=== PATIENT | male | born 2000 | race Caucasian/White ===

== ENCOUNTER 2024-09-02 21:42 | Emergency (ER) | payer SELFPAY ==
--- NOTE | 2024-09-02 21:48 | ERPHSYRPT ---
- History of Present Illness Time Seen by Provider: 09/02/24 21:48 Source: patient Exam Limitations: no limitations Physician History: This is a 24-year-old white male patient who has known multiple left upper molar fractures and dental caries. Patient is from out of town. Yesterday, the pain worsened and he has associated low-grade fever. Patient has no stridor. He is swallowing fine. Patient has no known drug allergies and he takes no medications chronically. Timing/Duration: gradual onset, yesterday (Symptoms worsened yesterday) Severity: mild ENT Location: dental (Left upper molars) Prearrival Treatment: over the counter meds Modifying Factors: Improves With: activity Associated Symptoms: fever (Grade), tooth pain (Dr. Mcleods) Allergies/Adverse Reactions: No Known Drug Allergies Allergy (Unverified 09/02/24 22:07) Travel Risk - International Travel Have you traveled outside of the country in past 3 weeks: No - Emerging Infectious Disease Are you exhibiting symptoms associated with any current EIDs: No - Review of Systems Constitutional: Fever (Low-grade) Eyes: No Symptoms Ears, Nose, & Throat: Other (Multiple dental fractures and generalized dental caries) Respiratory: No Symptoms Cardiac: No Symptoms Abdominal/Gastrointestinal: No Symptoms Genitourinary Symptoms: No Symptoms Musculoskeletal: No Symptoms Skin: No Symptoms Neurological: No Symptoms Psychological: No Symptoms Endocrine: No Symptoms Hematologic/Lymphatic: No Symptoms Immunological/Allergic: No Symptoms All Other Systems: Reviewed and Negative - Past Medical History Pertinent Past Medical History: No - Nursing Vital Signs Nursing Vital Signs: Initial Vital Signs Temperature 100.4 F 09/02/24 22:08 Pulse Rate 87 09/02/24 22:08 Respiratory Rate 20 09/02/24 22:08 Blood Pressure 162/97 09/02/24 22:08 O2 Sat by Pulse Oximetry 98 09/02/24 22:08 Pain Scale Pain Intensity 8 - Physical Exam General Appearance: no apparent distress, alert, anxiety Eye Exam: bilateral eye: normal inspection, PERRL, EOMI Ear Exam: bilateral ear: auricle normal Nasal Exam: normal inspection Throat Exam: pharynx normal, dental tenderness (Generalized dental caries and generalized dental fractures. 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, normal mood/affect, nml cerebellar function, nml station & gait, sensation nml Skin Exam: normal color, warm, dry SpO2 Interpretation: normal O2 Delivery: Room Air - Course Nursing assessment & vital signs reviewed: Yes Ordered Tests: Medication Summary Discontinued Medications Generic Name Dose Route Start Last Admin Trade Name Sincere PRN Reason Stop Dose Admin Hydrocodone Bitart/Acetaminophen 2 tab 09/02/24 22:24 Hydrocodone/Apap 5/325 1 Tab Tablet PO 09/02/24 22:25 SENT HOME W/ PATIENT ONE Hydrocodone Bitart/Acetaminophen 1 tab 09/02/24 22:25 Hydrocodone/Apap 5/325 1 Tab Tablet PO 09/02/24 22:26 STAT ONE Ceftriaxone Sodium 1,000 mg 09/02/24 22:23 Ceftriaxone Sodium 1000 Mg Inj Vial IM 09/02/24 22:24 STAT ONE Ibuprofen 600 mg 09/02/24 22:25 Ibuprofen 600 Mg Tablet PO 09/02/24 22:26 STAT ONE - Progress Progress: improved, pain not gone completely Progress Note: 09/02/24 22:40 My medical decision making and the assignment of low complexity to this patient's medical issue today is based on review of the patient's past medical history, review of the patient's medication list, reviewed patient drug allergy list, history present illness and physical findings on examination. The workup in this patient does not require any laboratory or radiographic studies. Differential diagnosis includes but is not limited to dental caries, dental fracture Counseled pt/family regarding: diagnosis, need for follow-up Medical Desision Making - Independent Historian Additional History obtained from: Relative/friend - Diagnostic Testing Diagnostic test were ordered, analyzed, and reviewed by me: No - Risk of complications The pt has a mod risk of morbidity or mortality based on: Need for prescription drug management - Departure Departure Disposition: Home Clinical Impression: Pain due to dental caries, Tooth fractures Condition: Stable Critical Care Time: No Referrals: DOCTOR,NO FAMILY [Primary Care Provider] - Follow up/PCP as directed Additional Instructions: Drink plenty of fluids. Add ibuprofen 600 mg orally 3 times a day with food to pain control regimen. Take your antibiotics as prescribed. Call a dentist for definitive care as an outpatient. Prescriptions: Amoxicillin 500 mg Cap [Amoxil 500 mg] 500 mg PO TID #30 cap
[2024-09-02 22:17] VITALS: RESP 20; TEMP 100.4
[2024-09-02] MEDS ORDERED: Rocephin 1000 MG INJ ONE (22:39)
[2024-09-02] MEDS ORDERED: NORCO 5/325 MG ONE (22:39)
[2024-09-02] MEDS ORDERED: MOTRIN 600 MG ONE (22:39)
[2024-09-02] MEDS: Rocephin 1000 MG INJ IM ONE (22:40)
[2024-09-02] MEDS: NORCO 5/325 MG PO ONE ×2 (22:41)
[2024-09-02] MEDS: MOTRIN 600 MG PO ONE (22:41)
[2024-09-02 22:53] VITALS: BP 135/106; PULSE 91; O2SAT 97
== END 2024-09-02 23:02 | disposition home or self-care (01) ==
LOC: ED 21:42
DX: K02.9 Dental caries, unspecified (principal); K08.89 Other specified disorders of teeth and supporting structures; Z79.899 Other long term (current) drug therapy
CPT/HCPCS: 96372; 99283; 99284; J0696; A9270-GY

== ENCOUNTER 2024-09-09 15:04 | Emergency (ER) | payer SELFPAY ==
[2024-09-09 15:16] VITALS: BP 169/82; PULSE 78; RESP 18; O2SAT 99
[2024-09-09] MEDS ORDERED: TORAdol 30 mg Injection ONE (15:19)
[2024-09-09] MEDS ORDERED: NORCO 5/325 MG ONE (15:20)
[2024-09-09] MEDS ORDERED: Augmentin 875-125 Tablet ONE (15:20)
--- NOTE | 2024-09-09 15:21 | ERPHSYRPT ---
- History of Present Illness Time Seen by Provider: 09/09/24 15:18 Source: patient Exam Limitations: no limitations Physician History: 24-year-old male presents to our ED for evaluation of dental pain. Patient was in our ED last week from the same. Patient is visiting from [place] and he does not have a primary care doctor locally. He has not seen a dentist. Patient's pain is localized to tooth #16. The tooth is carious with inflamed tender swollen gingiva adjacent to the involved tooth. There is tenderness to percussion. Oral exam otherwise nonremarkable. No trauma no fever no nausea no vomiting no diarrhea no rash. Patient has no systemic manifestations to his illness. He otherwise feels well. Family at bedside. They voiced no other complaints or concerns at this time. Portions of this note were created with voice recognition technology. There may be grammatical, spelling, punctuation or sound alike errors Timing/Duration: today Severity: moderate Modifying Factors: Improves With: other (Palpation and mastication) Associated Symptoms: denies symptoms Allergies/Adverse Reactions: No Known Drug Allergies Allergy (Verified 09/09/24 15:13) Hx Tetanus, Diphtheria Vaccination/Date Given: Yes Hx Influenza Vaccination/Date Given: Yes Hx Pneumococcal Vaccination/Date Given: No Travel Risk - Emerging Infectious Disease Are you exhibiting symptoms associated with any current EIDs: No Symptoms: Fever - Review of Systems Constitutional: No Symptoms, No Fever, No Chills Eyes: No Symptoms Ears, Nose, & Throat: No Symptoms Respiratory: No Symptoms, No Cough, No Dyspnea Cardiac: No Symptoms, No Chest Pain, No Edema, No Syncope Abdominal/Gastrointestinal: No Symptoms, No Abdominal Pain, No Nausea, No Vomiting, No Diarrhea Genitourinary Symptoms: No Symptoms, No Dysuria Musculoskeletal: No Symptoms, No Back Pain, No Neck Pain Skin: No Symptoms, No Rash Neurological: No Symptoms, No Dizziness, No Focal Weakness, No Sensory Changes Psychological: No Symptoms Endocrine: No Symptoms Hematologic/Lymphatic: No Symptoms Immunological/Allergic: No Symptoms All Other Systems: Reviewed and Negative - Past Medical History Pertinent Past Medical History: No - Past Surgical History Past Surgical History: No - Social History Smoking Status: Current some day smoker Exposure to second hand smoke: Yes Drug Use: none - Social Determinants of Health Will the patient participate in the screening: Yes Do you worry about a steady place to live?: No In the past 12 months,have you had to go without utilities?: No Transportation Issues: No Has anyone in your support network made you feel unsafe?: No Have you or anyone in your house had to go without enough: No - Nursing Vital Signs Nursing Vital Signs: Initial Vital Signs Pulse Rate 78 09/09/24 15:15 Respiratory Rate 18 09/09/24 15:15 Blood Pressure 169/82 09/09/24 15:15 O2 Sat by Pulse Oximetry 99 09/09/24 15:15 - Physical Exam General Appearance: no apparent distress, alert Eye Exam: PERRL/EOMI, eyes nml inspection Ears, Nose, Throat Exam: normal ENT inspection, pharynx normal, moist mucous membranes Neck Exam: normal inspection, non-tender, supple, full range of motion Respiratory Exam: normal breath sounds, lungs clear, airway intact, No respiratory distress Cardiovascular Exam: regular rate/rhythm, normal heart sounds, normal peripheral pulses Gastrointestinal/Abdomen Exam: soft, normal bowel sounds, No tenderness, No mass Back Exam: normal inspection, normal range of motion, No CVA tenderness, No vertebral tenderness Extremity Exam: normal inspection, normal range of motion, pelvis stable Neurologic Exam: alert, oriented x 3, cooperative, normal mood/affect, nml cerebellar function, nml station & gait, sensation nml, No motor deficits Skin Exam: normal color, warm, dry, No rash Lymphatic Exam: No adenopathy SpO2 Interpretation: normal SpO2: 99 O2 Delivery: Room Air - Course Nursing assessment & vital signs reviewed: Yes Ordered Tests: Medication Summary Discontinued Medications Generic Name Dose Route Start Last Admin Trade Name Sincere PRN Reason Stop Dose Admin Hydrocodone Bitart/Acetaminophen 1 tab 09/09/24 15:14 Hydrocodone/Apap 5/325 1 Tab Tablet PO 09/09/24 15:15 STAT ONE Hydrocodone Bitart/Acetaminophen Confirm 09/09/24 15:20 Hydrocodone/Apap 5/325 1 Tab Tablet Administered 09/09/24 15:21 Dose 1 tab .ROUTE .STK-MED ONE Amoxicillin/Clavulanate Potassium 875 mg 09/09/24 15:13 Amox Tr/Potassium Clavulanate 875 Mg Tablet PO 09/09/24 15:14 STAT ONE Amoxicillin/Clavulanate Potassium Confirm 09/09/24 15:20 Amox Tr/Potassium Clavulanate 875 Mg Tablet Administered 09/09/24 15:21 Dose 875 mg .ROUTE .STK-MED ONE Ketorolac Tromethamine 60 mg 09/09/24 15:12 Ketorolac Tromethamine 30 Mg/Ml Inj IM 09/09/24 15:13 STAT ONE Ketorolac Tromethamine Confirm 09/09/24 15:19 Ketorolac Tromethamine 30 Mg/Ml Inj Administered 09/09/24 15:20 Dose 60 mg .ROUTE .STK-MED ONE - Progress Progress: improved Progress Note: 24-year-old male presents to our ED for evaluation of dental pain. The involved tooth is tooth #16. The tooth is carious with inflamed gingiva likely a dental abscess. Patient was in our ED for the same last week. Patient was treated with penicillin. Patient has yet to follow-up with a dentist. No systemic manifestations of patient's presentation. Patient received IM Toradol 60 mg p.o. Holbrook and Augmentin. No indication for further workup. Will discharge home. Patient provided with a list of urgent dental offices for follow-up. Plan of care discussed with patient. He agrees to follow-up as discussed. He voices no other complaints or concerns at this time. Portions of this note were created with voice recognition technology. There may be grammatical, spelling, punctuation or sound alike errors Complexity of problem addressed is moderate acute complicated. No critical care time. Complex of data reviewed and analyzed is none. Diagnosis made based on history and physical exam. Risk of complication and or risk of morbidity/mortality of patient management is high. Patient received Holbrook in our ED. He also received a prescription for the same. Patient received a prescription for Augmentin and Toradol as well. Vital stable. Time spent to discharge patient approximately 10 minutes. Plan of care established for shared decision making. No social determinants of health present to impede follow-up. Portions of this note were created with voice recognition technology. There may be grammatical, spelling, punctuation or sound alike errors 09/09/24 15:26 Counseled pt/family regarding: diagnosis, need for follow-up - Departure Departure Disposition: Home Clinical Impression: Pain, dental, Dental abscess, Carious teeth Condition: Stable Critical Care Time: No Referrals: DOCTOR,NO FAMILY [Primary Care Provider] - Follow up/PCP as directed LVADIMIR MERAZ MD [ACTIVE STAFF] - Follow up/PCP as directed Additional Instructions: Discharge/Care Plan DAVID SHELBY was seen on 09/09/24 in the Emergency Room. The patient was counseled regarding Diagnosis,Lab results, Imaging studies, need for follow up and when to return to the Emergency Room. Prescriptions given: Discharge Note I have spoken with the patient and/or caregivers. I have explained the patient's condition, diagnosis and treatment plan based on the information available to me at this time. I have answered the patient's and/or caregiver's questions and addressed any concerns. The patient and/or caregivers have as good understanding of the patient's diagnosis, condition and treatment plan as can be expected at this point. The vital signs have been stable. The patient's condition is stable and appropriate for discharge from the emergency department. The patient will pursue further outpatient evaluation with the primary care physician or other designated or consulting physician as outlined in the discharge instructions. The patient and/or caregivers are agreeable to this plan of care and follow-up instructions have been explained in detail. The patient and/or caregivers have received these instruction. The patient/and or caregivers are aware that any significant change in condition or worsening of symptoms should prompt an immediate return to this or the closest emergency department or call 911. Prescriptions: Hydrocodone/APAP 5/325 [Holbrook 5/325 mg] 1 each PO Q6H PRN PRN #10 tablet MDD 4 PRN Reason: Pain Amox Tr/Potass Clav. 875 mg [Augmentin 875-125 Tablet] 875 mg PO BID 7 Days #14 tablet Ketorolac Trometh 10 mg Tab [TORAdol 10 MG TABLET] 10 mg PO TID 5 Days #15 tablet
[2024-09-09] MEDS: Augmentin 875-125 Tablet PO ONE (15:22)
[2024-09-09] MEDS: TORAdol 30 mg Injection IM ONE (15:23)
[2024-09-09] MEDS: NORCO 5/325 MG PO ONE (15:23)
== END 2024-09-09 15:48 | disposition home or self-care (01) ==
LOC: ED 15:04
DX: K04.7 Periapical abscess without sinus (principal); K02.9 Dental caries, unspecified; K08.89 Other specified disorders of teeth and supporting structures; Z79.891 Long term (current) use of opiate analgesic; Z79.899 Other long term (current) drug therapy; Z72.0 Tobacco use
CPT/HCPCS: 96372; 99283; J1885; A9270-GY

== ENCOUNTER 2024-10-03 21:54 | Emergency (ER) | payer SELFPAY ==
[2024-10-03 22:36] VITALS: BP 137/82; RESP 18; TEMP 97.5
[2024-10-03 23:02] VITALS: PULSE 107; O2SAT 97
--- NOTE | 2024-10-03 23:28 | ERPHSYRPT ---
- History of Present Illness Time Seen by Provider: 10/03/24 22:07 Source: patient Exam Limitations: no limitations Patient Subjective Stated Complaint: "I have a bad tooth ache and I think an abscess". Triage Nursing Assessment: Pt presents to ER with complaints of toothache x 3 days. Is concerned that he possibly has an abscess. Pt is alert and oriented x 3. Skin is pink, warm, and dry. Respirations are unlabored. Pain is 9/10 scale. Dental decay noted. Facial tenderness upon exam. Pt has attempted to use OTC meds without relief. Physician History: 24-year-old presented in the ER with complains of left upper jaw toothache in the molar area where it broke few weeks ago and now having increased swelling and pain. Patient is taking ofse-inl-ybhiyme medication with no significant relief. Denies any fever or chills. Patient has multiple broken teeth with periodontal disease and dental caries. Has minimal swelling of gingiva of left upper molar area with no fluctuation. Does have positive dental and gingival tenderness. Do not appreciate any formed abscess. He is given Toradol here along with dental balls and started on Augmentin, recommended outpatient dental follow-up. Discussed signs symptoms of worsening needing return to ER which she seems understanding. Stable for discharge. Allergies/Adverse Reactions: No Known Drug Allergies Allergy (Verified 10/03/24 22:28) Hx Tetanus, Diphtheria Vaccination/Date Given: Yes Hx Influenza Vaccination/Date Given: Yes Hx Pneumococcal Vaccination/Date Given: No Immunizations Up to Date: No Travel Risk - International Travel Have you traveled outside of the country in past 3 weeks: No - Emerging Infectious Disease Are you exhibiting symptoms associated with any current EIDs: No Symptoms: Fever - Review of Systems Constitutional: No Symptoms Ears, Nose, & Throat: Mouth Pain, Loose Teeth Respiratory: No Symptoms Cardiac: No Symptoms Musculoskeletal: No Symptoms Neurological: No Symptoms Endocrine: No Symptoms - Past Medical History Pertinent Past Medical History: No - Past Surgical History Past Surgical History: No - Social History Smoking Status: Current every day smoker Exposure to second hand smoke: No Drug Use: none - Social Determinants of Health Will the patient participate in the screening: Yes Do you worry about a steady place to live?: No Do you have any problems with any of the following?: No known problems In the past 12 months,have you had to go without utilities?: No Transportation Issues: No Has anyone in your support network made you feel unsafe?: No Have you or anyone in your house had to go without enough: No - Nursing Vital Signs Nursing Vital Signs: Initial Vital Signs Temperature 97.5 F 10/03/24 22:28 Pulse Rate 88 10/03/24 22:28 Respiratory Rate 18 10/03/24 22:28 Blood Pressure 137/82 10/03/24 22:28 O2 Sat by Pulse Oximetry 98 10/03/24 22:28 Pain Scale Pain Intensity 9 - Physical Exam General Appearance: no apparent distress Eye Exam: bilateral eye: normal inspection Ear Exam: bilateral ear: auricle normal, canal normal, TM normal Nasal Exam: normal inspection, active bleeding Throat Exam: normal, pharynx normal, dental tenderness Neck Exam: normal inspection, non-tender, supple, full range of motion, trachea midline Cardiovascular/Respiratory Exam: normal breath sounds, regular rate/rhythm Neurologic Exam: alert, oriented x 3, cooperative, 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 Skin Exam: normal color SpO2 Interpretation: normal SpO2: 97 O2 Delivery: Room Air Ordered Tests: Medication Summary Discontinued Medications Generic Name Dose Route Start Last Admin Trade Name Freq PRN Reason Stop Dose Admin Al Hydrox/Mg Hydrox/Simethicone 30 ml 10/03/24 23:14 Mag Hydrox/Al Hydrox/Simeth 30 Ml Udcup MM 10/03/24 23:15 STAT ONE Amoxicillin/Clavulanate Potassium 875 mg 10/03/24 23:14 Amox Tr/Potassium Clavulanate 875 Mg Tablet PO 10/03/24 23:15 STAT ONE Benzocaine/Butamben/Tetracaine HCl 5 spray 10/03/24 23:14 Tetracaine/Benzocaine/Butamben 1 [place] MM 10/03/24 23:15 ONCE ONE Ketorolac Tromethamine 30 mg 10/03/24 23:14 Ketorolac Tromethamine 30 Mg/Ml Inj IM 10/03/24 23:15 STAT ONE Lidocaine HCl 30 ml 10/03/24 23:14 Lidocaine Hcl 2% Viscous 15 Ml Udcup MM 10/03/24 23:15 STAT ONE - Progress Progress: improved, pain not gone completely Progress Note: 10/03/24 23:26 24-year-old presented in the ER with complains of left upper jaw toothache in the molar area where it broke few weeks ago and now having increased swelling and pain. Patient is taking [id number] medication with no significant relief. Denies any fever or chills. Patient has multiple broken teeth with periodontal disease and dental caries. Has minimal swelling of gingiva of left upper molar area with no fluctuation. Does have positive dental and gingival tenderness. Do not appreciate any formed abscess. He is given Toradol here along with dental balls and started on Augmentin, recommended outpatient dental follow-up. Discussed signs symptoms of worsening needing return to ER which she seems understanding. Stable for discharge. Counseled pt/family regarding: diagnosis, need for follow-up Medical Desision Making - Diagnostic Testing Diagnostic test were ordered, analyzed, and reviewed by me: No - Risk of complications The pt has a mod risk of morbidity or mortality based on: Need for prescription drug management - Departure Departure Disposition: Home Clinical Impression: Dental infection, Dental infection Condition: Stable Critical Care Time: No Referrals: DOCTOR,NO FAMILY [Primary Care Provider] - Follow up/PCP as directed Instructions: Tooth Abscess (DC) Additional Instructions: Follow-up with your dentist for reevaluation. Take Tylenol/ibuprofen as needed. Return to ER for increasing pain swelling or if develop fever chills etc. Prescriptions: Ibuprofen 600 mg PO Q6HPRN PRN 10 Days #20 tablet PRN Reason: Pain Amox Tr/Potass Clav. 875 mg [Augmentin 875-125 Tablet] 875 mg PO BID #14 tablet
[2024-10-03] MEDS ORDERED: Augmentin 875-125 Tablet ONE (23:54)
[2024-10-03] MEDS ORDERED: TORAdol 30 mg Injection ONE (23:54)
[2024-10-03] MEDS ORDERED: CETACAINE SPRAY ONE (23:55)
[2024-10-03] MEDS ORDERED: XYLOCAINE VISCOUS 2% 15 ML CUP ONE (23:56)
[2024-10-03] MEDS ORDERED: MAALOX ES 30 ML UNIT DOSE ONE (23:56)
[2024-10-04] MEDS: Augmentin 875-125 Tablet PO ONE (00:01)
[2024-10-04] MEDS: MAALOX ES 30 ML UNIT DOSE MM ONE (00:10)
[2024-10-04] MEDS: CETACAINE SPRAY MM ONE (00:10)
[2024-10-04] MEDS: XYLOCAINE VISCOUS 2% 15 ML CUP MM ONE (00:10)
[2024-10-04] MEDS: TORAdol 30 mg Injection IM ONE (00:10)
== END 2024-10-04 00:05 | disposition home or self-care (01) ==
LOC: ED 21:54
DX: K04.7 Periapical abscess without sinus (principal); K08.89 Other specified disorders of teeth and supporting structures; Z79.899 Other long term (current) drug therapy; Z72.0 Tobacco use
CPT/HCPCS: 99282; 99283; J1885; A9270-GY

== ENCOUNTER 2024-11-17 22:39 | Emergency (ER) | payer SELFPAY ==
[2024-11-17 23:23] VITALS: TEMP 97.5
[2024-11-17] MEDS ORDERED: TORAdol 30 mg Injection ONE (23:30)
[2024-11-17] MEDS: TORAdol 30 mg Injection IM ONE (23:36)
[2024-11-18] MEDS ORDERED: PERCOCET TABLET 5/325MG ONE (00:14)
[2024-11-18] MEDS: PERCOCET TABLET 5/325MG PO ONE (00:16)
[2024-11-18 00:19] VITALS: BP 140/96; PULSE 74; RESP 18; O2SAT 96
--- NOTE | 2024-11-18 00:42 | ERPHSYRPT ---
- History of Present Illness Time Seen by Provider: 11/17/24 23:19 Source: patient Exam Limitations: no limitations Patient Subjective Stated Complaint: "I got my hand slammed in the truck door around 3pm today. It's hurting pretty bad". Triage Nursing Assessment: Pt presents to ER with right hand injury that occurred around 1500 this afternoon. States accidently got his hand shut in a truck door. Pt has swelling, tenderness, and limited ROM to right hand. Pt is alert and oriented x 3. Skin is pink, warm, and dry. Respirations are easy at this time. Denies any other injuries. Physician History: 24-year-old right-handed dominant male presented in the ER with complaint of moderate to severe sharp shooting pain sudden onset in the right thumb base when his hand got slammed in the car door prior to arrival. Patient is having severe pain with minimal movements, no numbness or tingling at the thumb tip. No injury anywhere else. No skin break. Allergies/Adverse Reactions: No Known Drug Allergies Allergy (Verified 11/17/24 23:22) Hx Tetanus, Diphtheria Vaccination/Date Given: Yes Hx Influenza Vaccination/Date Given: Yes Hx Pneumococcal Vaccination/Date Given: No Travel Risk - International Travel Have you traveled outside of the country in past 3 weeks: No - Emerging Infectious Disease Are you exhibiting symptoms associated with any current EIDs: No Symptoms: Fever - Review of Systems Constitutional: No Symptoms Ears, Nose, & Throat: No Symptoms Respiratory: No Symptoms Cardiac: No Symptoms Abdominal/Gastrointestinal: No Symptoms Musculoskeletal: Injury, Joint Pain, Joint Swelling Skin: No Symptoms Neurological: No Symptoms - Past Medical History Pertinent Past Medical History: No - Past Surgical History Past Surgical History: No - Social History Smoking Status: Current every day smoker Exposure to second hand smoke: No Drug Use: none - Social Determinants of Health Will the patient participate in the screening: Yes Do you worry about a steady place to live?: No Do you have any problems with any of the following?: No known problems In the past 12 months,have you had to go without utilities?: No Transportation Issues: No Has anyone in your support network made you feel unsafe?: No Have you or anyone in your house had to go w/o enough food: No - Nursing Vital Signs Nursing Vital Signs: Initial Vital Signs Temperature 97.5 F 11/17/24 23:18 Pulse Rate 81 11/17/24 23:18 Respiratory Rate 20 11/17/24 23:18 Blood Pressure 145/90 11/17/24 23:18 O2 Sat by Pulse Oximetry 97 11/17/24 23:18 Pain Scale Pain Intensity 10 - Physical Exam General Appearance: no apparent distress Neck Exam: normal inspection, full range of motion Cardiovascular/Respiratory Exam: normal breath sounds, regular rate/rhythm Hand Exam: bone tenderness, limited ROM, soft tissue tenderness, swelling (Right base of thumb, anatomical snuffbox area, proximal phalanx.) Neuro/Tendon Exam: normal sensation, normal tendon functions Mental Status Exam: alert, oriented x 3, cooperative Skin Exam: normal color SpO2 Interpretation: normal SpO2: 96 O2 Delivery: Room Air Ordered Tests: Active Orders 24 hr Category Date Time Status HAND (MINIMUM 3 VIEWS) Stat Exams 11/17/24 23:23 Taken Medication Summary Discontinued Medications Generic Name Dose Route Start Last Admin Trade Name Freq PRN Reason Stop Dose Admin Ketorolac Tromethamine 30 mg 11/17/24 23:29 11/17/24 23:36 Ketorolac Tromethamine 30 Mg/Ml Inj IM 11/17/24 23:30 30 mg STAT ONE Administration Ketorolac Tromethamine Confirm 11/17/24 23:30 Ketorolac Tromethamine 30 Mg/Ml Inj Administered 11/17/24 23:31 Dose 30 mg .ROUTE .STK-MED ONE Oxycodone/Acetaminophen 1 tab 11/18/24 00:01 11/18/24 00:16 Oxycodone Hcl/Apap 5 Mg/325 Mg Tablet PO 11/18/24 00:02 1 tab STAT ONE Administration Oxycodone/Acetaminophen Confirm 11/18/24 00:14 Oxycodone Hcl/Apap 5 Mg/325 Mg Tablet Administered 11/18/24 00:15 Dose 1 tab .ROUTE .STK-MED ONE - Progress Progress: improved Progress Note: 11/18/24 00:40 24-year-old [id number] male is evaluated in the ER when his hand got slammed in the car door with injury to the base of right thumb. Patient has swelling, excruciating pain with minimal movements. Distal neurovascular intact. X-rays showed chip fracture base of proximal phalanx reviewed by me, official report is pending. He is given Toradol and oxycodone for symptomatic relief. Placed in thumb spica Ortho-Glass splint made by RN with intact neurovascular on reevaluation. Recommended outpatient orthopedics follow-up. Discussed signs symptoms of worsening needing return to ER which he seems understanding. Stable for discharge. Counseled pt/family regarding: diagnosis, need for follow-up, rad results Medical Desision Making - Independent Historian Additional History obtained from: Spouse - Diagnostic Testing Diagnostic test were ordered, analyzed, and reviewed by me: Yes Radiological Interpretation: Interpreted by me, Reviewed by me - Risk of complications The pt has a mod risk of morbidity or mortality based on: Need for prescription drug management - Departure Departure Disposition: Home Clinical Impression: Thumb fracture, Hand contusion Condition: Stable Critical Care Time: No Referrals: DOCTOR,NO FAMILY [Primary Care Provider] - Follow up/PCP as directed CARLOS ZHANG MD [ACTIVE STAFF] - Follow up/PCP as directed (Call in the morning for appointment for reevaluation) Instructions: Hand Fracture (DC) Additional Instructions: Committed ice application. Follow-up with orthopedics for reevaluation in the morning. Return to ER for increasing pain swelling, difficulty movements etc. Prescriptions: Hydrocodone/Acetaminophen [Hydrocodone-Acetamin 5-325 mg] 1 tab PO Q6HPRN PRN 3 Days #12 tablet MDD 4 PRN Reason: Pain Ibuprofen 600 mg PO Q6HPRN PRN 10 Days #20 tablet PRN Reason: Pain
--- NOTE | 2024-11-18 08:54 | XRAY ---
Indication: Pain following injury. Comparison: None 3 view right hand demonstrates old distal 5th metacarpal fracture. No other bony, articular, or soft tissue abnormalities.
== END 2024-11-18 00:50 | disposition home or self-care (01) ==
LOC: ED 22:39
DX: S62.511A Displaced fracture of proximal phalanx of right thumb, initial encounter for closed fracture (principal); S60.221A Contusion of right hand, initial encounter; W23.0XXA Caught, crushed, jammed, or pinched between moving objects, initial encounter; Z79.891 Long term (current) use of opiate analgesic; Z79.899 Other long term (current) drug therapy; Z72.0 Tobacco use
CPT/HCPCS: 29125; 73130; 99283; J1885; A9270-GY

== ENCOUNTER 2024-11-21 09:39 | Emergency (ER) | payer SELFPAY ==
[2024-11-21 09:52] VITALS: PULSE 72; TEMP 97.9; O2SAT 100
[2024-11-21] MEDS ORDERED: PERCOCET TABLET 5/325MG ONE (10:25)
[2024-11-21] MEDS: PERCOCET TABLET 5/325MG PO ONE (10:26)
--- NOTE | 2024-11-21 10:34 | ERPHSYRPT ---
- History of Present Illness Time Seen by Provider: 11/21/24 10:01 Source: patient Exam Limitations: no limitations Patient Subjective Stated Complaint: Pt was here 4-5 days ago and was diagnosed with some fractures in his right hand and reports that no ortho takes his ins urance around here and he needs a cast and he is having severe pain and the medicine he was given isn't doing anything and the hydrocodones are making him sick, pt is here for pain control, he isn't going back to [place] for a week Triage Nursing Assessment: Pt was brought to the ER by his , vitals wnl, rates pain as 10/10, pulses normal, skin n/w/d, no difficulty breathing, denies chest pain, doesn't appear to be in any distress Physician History: 24-year-old male presented in the ER with right hand/thumb pain after his hand got in the car door. He was evaluated in this ER, was given pain medication but reports that Metter makes him nauseated and cannot take it, has been taking ibuprofen with no relief. Pain is moderate to severe sharp shooting from thumb to the forearm area. He is in thumb spica. Patient tried to go [facility] here but could not see because of some insurance issues. Patient denies any new fall or trauma. Allergies/Adverse Reactions: No Known Drug Allergies Allergy (Verified 11/21/24 09:52) Hx Tetanus, Diphtheria Vaccination/Date Given: Yes Hx Influenza Vaccination/Date Given: Yes Hx Pneumococcal Vaccination/Date Given: No Travel Risk - International Travel Have you traveled outside of the country in past 3 weeks: No - Emerging Infectious Disease Are you exhibiting symptoms associated with any current EIDs: No Symptoms: Fever - Review of Systems Constitutional: No Symptoms Ears, Nose, & Throat: No Symptoms Respiratory: No Symptoms Cardiac: No Symptoms Abdominal/Gastrointestinal: No Symptoms Genitourinary Symptoms: No Symptoms Musculoskeletal: Injury, Joint Pain Skin: No Symptoms Neurological: No Symptoms Endocrine: No Symptoms - Past Medical History Pertinent Past Medical History: Yes Musculoskeletal History: Fractures - Past Surgical History Past Surgical History: No - Social History Smoking Status: Current every day smoker Exposure to second hand smoke: Yes Drug Use: none - Social Determinants of Health Will the patient participate in the screening: Yes Do you worry about a steady place to live?: No Do you have any problems with any of the following?: No known problems In the past 12 months,have you had to go without utilities?: No Transportation Issues: No Has anyone in your support network made you feel unsafe?: No Have you or anyone in your house had to go w/o enough food: No - Nursing Vital Signs Nursing Vital Signs: Initial Vital Signs Temperature 97.9 F 11/21/24 09:44 Pulse Rate 72 11/21/24 09:44 Blood Pressure 137/90 11/21/24 09:44 O2 Sat by Pulse Oximetry 100 11/21/24 09:44 Pain Scale Pain Intensity 6 - Physical Exam General Appearance: no apparent distress, alert Neck Exam: normal inspection, full range of motion Cardiovascular/Respiratory Exam: normal breath sounds, regular rate/rhythm Hand Exam: bone tenderness, limited ROM (Left thumb), swelling Neuro/Tendon Exam: normal sensation, normal motor functions Mental Status Exam: alert, oriented x 3, cooperative Skin Exam: normal color SpO2 Interpretation: normal SpO2: 100 O2 Delivery: Room Air Ordered Tests: Active Orders 24 hr Category Date Time Status HAND (MINIMUM 3 VIEWS) Stat Exams 11/21/24 10:11 Completed Medication Summary Discontinued Medications Generic Name Dose Route Start Last Admin Trade Name Sincere PRN Reason Stop Dose Admin Oxycodone/Acetaminophen 1 tab 11/21/24 10:11 11/21/24 10:26 Oxycodone Hcl/Apap 5 Mg/325 Mg Tablet PO 11/21/24 10:12 1 tab STAT ONE Administration Oxycodone/Acetaminophen Confirm 11/21/24 10:25 Oxycodone Hcl/Apap 5 Mg/325 Mg Tablet Administered 11/21/24 10:26 Dose 1 tab .ROUTE .STK-MED ONE - Progress Progress: improved, pain not gone completely, re-examined Progress Note: 11/21/24 11:30 24-year-old [id number] male is evaluated in the ER for right thumb pain after he slammed his hand in the car door few days ago. Patient is currently in thumb spica. Is given Percocet for symptomatic relief, feeling better on reevaluation. X-rays showed small chip fracture at the corner of proximal phalanx reviewed by me followed by official read. Recommended continue and thumb spica and outpatient follow-up with orthopedics which patient is going to see them next Amina. Will give him pain medications to take as needed. Discussed signs symptoms of worsening needing return to ER which she seems understanding. Counseled pt/family regarding: diagnosis, need for follow-up, rad results Medical Desision Making - Diagnostic Testing Diagnostic test were ordered, analyzed, and reviewed by me: Yes Radiological Interpretation: Interpreted by me, Reviewed by me - Risk of complications The pt has a mod risk of morbidity or mortality based on: Need for prescription drug management - Departure Departure Disposition: Home Clinical Impression: Thumb fracture Condition: Stable Critical Care Time: No Referrals: DOCTOR,NO FAMILY [Primary Care Provider] - Follow up/PCP as directed CARLOS ZHANG MD [ACTIVE STAFF] - Follow up/PCP as directed (Call for appointment) Instructions: Finger Fracture ED Additional Instructions: Take pain medications as needed. Keep thumb spica on. Follow-up with orthopedics for reevaluation. Return to ER for any worsening. Prescriptions: Oxycodone HCl/Acetaminophen [Percocet 5-325 mg Tablet] 1 each PO Q6H PRN PRN 3 Days #12 tablet MDD 4 PRN Reason: Pain
[2024-11-21 10:51] VITALS: BP 136/93
--- NOTE | 2024-11-21 11:12 | XRAY ---
Indication: Pain. Fracture. Comparison: November 18, 2024 3 view right hand with additional coned-down view 1st phalanx obtained. Base 1st proximal phalanx now demonstrates tiny nondisplaced hairline corner fracture ulnar aspect, as seen on coned-down view.. Again old distal 5th metacarpal fracture. No other bony, articular, or soft tissue abnormalities.
[2024-11-21 11:51] VITALS: RESP 16
== END 2024-11-21 11:43 | disposition home or self-care (01) ==
LOC: ED 09:39
DX: S62.511A Displaced fracture of proximal phalanx of right thumb, initial encounter for closed fracture (principal); Z79.891 Long term (current) use of opiate analgesic; Z72.0 Tobacco use
CPT/HCPCS: 73130; 99283; A9270-GY

== ENCOUNTER 2024-11-25 20:11 | Emergency (ER) | payer SELFPAY ==
[2024-11-25 21:27] VITALS: TEMP 97.3
--- NOTE | 2024-11-25 21:45 | ERPHSYRPT ---
- History of Present Illness Time Seen by Provider: 11/25/24 21:44 Source: patient, family Exam Limitations: no limitations Patient Subjective Stated Complaint: Last week his thumb and hand was shut in the car door, he has fractured thumb and ligaments are torn away from the joint on the bone. Pt is still having pain Triage Nursing Assessment: Pt ambulated into ER without diff with a wrist splint on rt hand. Pt c/o rt thumb/hand/wrist pain. Last week pt's girlfriend accidentally shut his thumb/hand in the car door. Pt has fractured thumb and ligaments torn away from the joint on the bone. Pt saw Dr. Alaniz here. Our ortho clinic according to pt does not take his insurance. Pt is in alot of pain, states, "I took the last percocet yesterday around 5pm and I have been miserable in pain ever since". Pt is taking IBU but not getting much relief. Physician History: This is a 24-year-old white male patient who injured his hand accidentally just over a week ago when his actually slammed the door in his hand was present. There is significant tendon and bony injury. He was sent to the orthopedic clinic on 11/18/2024. However they could not see the patient because they do not take his insurance. Patient then returned to the emergency department on 11/21/2024 and did receive a few tablets of Percocet. Patient ran out of his Percocet yesterday and he is having pain. He had no new trauma to the area and he has not fallen. He is only taken ibuprofen and that is not helping relieve his pain. He does have appointment to see an orthopedic surgeon on 11/29/2024 in [place] per his report. His main issue is pain control. He would like a few tablets to get him home to see his orthopedic surgeon on 11/29/2024 Occurred: other (Approximately 1 week ago) Method of Injury: direct blow (From a car door) Severity of Pain-Max: moderate Severity of Pain-Current: moderate Extremities Pain Location: hand: right, thumb: right Modifying Factors: Improves With: movement Associated Symptoms: none Allergies/Adverse Reactions: No Known Drug Allergies Allergy (Verified 11/25/24 21:37) Hx Tetanus, Diphtheria Vaccination/Date Given: Yes Hx Influenza Vaccination/Date Given: Yes Hx Pneumococcal Vaccination/Date Given: No Travel Risk - International Travel Have you traveled outside of the country in past 3 weeks: Yes - Emerging Infectious Disease Are you exhibiting symptoms associated with any current EIDs: No Symptoms: Fever - Review of Systems Constitutional: No Symptoms Eyes: No Symptoms Ears, Nose, & Throat: No Symptoms Respiratory: No Symptoms Cardiac: No Symptoms Abdominal/Gastrointestinal: No Symptoms Genitourinary Symptoms: No Symptoms Musculoskeletal: Injury (Right hand) Skin: No Symptoms Neurological: No Symptoms Psychological: No Symptoms Endocrine: No Symptoms Hematologic/Lymphatic: No Symptoms Immunological/Allergic: No Symptoms All Other Systems: Reviewed and Negative - Past Medical History Pertinent Past Medical History: Yes Musculoskeletal History: Fractures GI Medical History: Gallbladder Disease - Past Surgical History Past Surgical History: No Gastrointestinal: Cholecystectomy - Social History Smoking Status: Never smoker Exposure to second hand smoke: No Drug Use: none - Social Determinants of Health Will the patient participate in the screening: Yes Do you worry about a steady place to live?: No Do you have any problems with any of the following?: No known problems In the past 12 months,have you had to go without utilities?: No Transportation Issues: No Has anyone in your support network made you feel unsafe?: No Have you or anyone in your house had to go w/o enough food: No - Nursing Vital Signs Nursing Vital Signs: Initial Vital Signs Temperature 97.3 F 11/25/24 21:25 Pulse Rate 64 11/25/24 21:25 Respiratory Rate 20 11/25/24 21:25 Blood Pressure 128/78 11/25/24 21:25 O2 Sat by Pulse Oximetry 100 11/25/24 21:25 Pain Scale Pain Intensity [Right Finger] 10 Pain Intensity 10 - Physical Exam General Appearance: no apparent distress, alert, anxiety Eyes, Ears, Nose, Throat Exam: normal ENT inspection, moist mucous membranes Neck Exam: normal inspection, non-tender, supple, full range of motion Cardiovascular/Respiratory Exam: chest non-tender, no respiratory distress Abdominal Exam: non-tender Back Exam: normal inspection, normal range of motion, No CVA tenderness, No vertebral tenderness Shoulder Exam: normal inspection, non-tender, no evidence of injury, normal ROM Elbow/Forearm Exam: normal inspection, non-tender, normal ROM Wrist Exam: normal inspection, non-tender, no evidence of injury, normal ROM Hand Exam: bone tenderness (Right thumb), soft tissue tenderness (Right hand and right thumb), swelling (Right thumb) Neuro/Tendon Exam: normal sensation, responds to pain Mental Status Exam: alert, oriented x 3, cooperative Skin Exam: normal color, warm, dry SpO2 Interpretation: normal SpO2: 100 O2 Delivery: Room Air - Course Nursing assessment & vital signs reviewed: Yes Ordered Tests: Medication Summary Discontinued Medications Generic Name Dose Route Start Last Admin Trade Name Freq PRN Reason Stop Dose Admin Oxycodone/Acetaminophen 2 tab 11/25/24 22:23 Oxycodone / Apap 10/325 Mg 1 Tablet PO 11/25/24 22:24 SENT HOME W/ PATIENT STA - Progress Progress: improved, pain not gone completely Progress Note: 11/25/24 22:30 My medical decision making and the assignment of low complexity to this patient's medical issue today is based on review of the patient's past medical history, review the patient's medication list, reviewed patient drug allergy list, history present illness and physical findings on examination. The workup in this patient does not require radiographic or laboratory studies. The patient is requesting a few days of Percocet pain medication for his travel back to [place]. He was told that this would be the last time from our emergency department that he would receive any narcotic pain medicine until he is evaluated and treated by an orthopedic surgeon. Counseled pt/family regarding: diagnosis, need for follow-up Medical Desision Making - Diagnostic Testing Diagnostic test were ordered, analyzed, and reviewed by me: No - Departure Departure Disposition: Home Clinical Impression: Encounter for pain management Condition: Stable Critical Care Time: No Referrals: DOCTOR,NO FAMILY [Primary Care Provider] - Follow up/PCP as directed Additional Instructions: Continue ibuprofen 600 mg orally 3 times a day with food for the next 5 days. Keep your appointment to see orthopedic surgeon on 11/29/2024. You will need to discuss outpatient pain management from this day forward with your primary care provider and/or orthopedic surgeon Prescriptions: Oxycodone HCl/Acetaminophen [Percocet 5-325 mg Tablet] 1 each PO Q8H PRN PRN #6 tablet MDD 3 PRN Reason: Moderate To Severe Pain
[2024-11-25 22:13] VITALS: BP 129/90; PULSE 82; RESP 18
[2024-11-25] MEDS ORDERED: OXYCODONE-ACETAMINOPHEN 10-325 ONE (22:25)
[2024-11-25] MEDS: OXYCODONE-ACETAMINOPHEN 10-325 PO STA (22:27)
[2024-11-25 22:31] VITALS: O2SAT 100
== END 2024-11-25 22:35 | disposition home or self-care (01) ==
LOC: ED 20:11
DX: Z76.0 Encounter for issue of repeat prescription (principal); M79.641 Pain in right hand; Z79.891 Long term (current) use of opiate analgesic
CPT/HCPCS: 99282; A9270-GY

== ENCOUNTER 2025-01-07 23:37 | Emergency (ER) | payer SELFPAY ==
[2025-01-08 00:01] VITALS: BP 153/94; PULSE 74; RESP 18; TEMP 96.4; O2SAT 100
[2025-01-08] MEDS ORDERED: NORCO 5/325 MG ONE (00:04)
[2025-01-08] MEDS ORDERED: Augmentin 875-125 Tablet ONE (00:04)
[2025-01-08] MEDS ORDERED: TORAdol 30 mg Injection ONE (00:04)
[2025-01-08] MEDS ORDERED: NORCO 10-325 MG ONE (00:04)
--- NOTE | 2025-01-08 00:04 | ERPHSYRPT ---
- History of Present Illness Time Seen by Provider: 01/08/25 00:01 Source: patient Exam Limitations: no limitations Physician History: 24-year-old male presents to our ED for evaluation of left maxillary molar pain tooth #16. Patient states the tooth is fractured. Patient began to experience worsening pain over the past day or 2. Pain is significant today. Pain described as an ache that is localized. Pain worse with mastication. Pain improved with rest. No trauma no fever. Patient otherwise feels well. He voices no other complaints or concerns at this time. Portions of this note were created with voice recognition technology. There may be grammatical, spelling, punctuation or sound alike errors Timing/Duration: today Severity: moderate Modifying Factors: Improves With: other (Mastication percussion to the involved tooth) Associated Symptoms: denies symptoms Allergies/Adverse Reactions: No Known Drug Allergies Allergy (Verified 11/25/24 21:37) Hx Tetanus, Diphtheria Vaccination/Date Given: Yes Hx Influenza Vaccination/Date Given: Yes Hx Pneumococcal Vaccination/Date Given: No Travel Risk - Emerging Infectious Disease Are you exhibiting symptoms associated with any current EIDs: No Symptoms: Fever - Review of Systems Constitutional: No Symptoms, No Fever, No Chills Eyes: No Symptoms Ears, Nose, & Throat: No Symptoms Respiratory: No Symptoms, No Cough, No Dyspnea Cardiac: No Symptoms, No Chest Pain, No Edema, No Syncope Abdominal/Gastrointestinal: No Symptoms, No Abdominal Pain, No Nausea, No Vomiting, No Diarrhea Genitourinary Symptoms: No Symptoms, No Dysuria Musculoskeletal: No Symptoms, No Back Pain, No Neck Pain Skin: No Symptoms, No Rash Neurological: No Symptoms, No Dizziness, No Focal Weakness, No Sensory Changes Psychological: No Symptoms Endocrine: No Symptoms Hematologic/Lymphatic: No Symptoms Immunological/Allergic: No Symptoms All Other Systems: Reviewed and Negative - Past Medical History Pertinent Past Medical History: Yes Musculoskeletal History: Fractures GI Medical History: Gallbladder Disease - Past Surgical History Past Surgical History: No Gastrointestinal: Cholecystectomy - Social History Smoking Status: Never smoker Exposure to second hand smoke: No Drug Use: none - Social Determinants of Health Will the patient participate in the screening: Yes Do you worry about a steady place to live?: No In the past 12 months,have you had to go without utilities?: No Transportation Issues: No Has anyone in your support network made you feel unsafe?: No Have you or anyone in your house had to go w/o enough food: No - Physical Exam General Appearance: no apparent distress, alert Eye Exam: PERRL/EOMI, eyes nml inspection Ears, Nose, Throat Exam: normal ENT inspection, moist mucous membranes Neck Exam: normal inspection, full range of motion Respiratory Exam: normal breath sounds, lungs clear, airway intact, No respiratory distress Cardiovascular Exam: regular rate/rhythm, normal heart sounds, normal peripheral pulses Gastrointestinal/Abdomen Exam: soft, normal bowel sounds, No tenderness, No mass Back Exam: normal inspection, normal range of motion, No CVA tenderness, No vertebral tenderness Extremity Exam: normal inspection, normal range of motion, pelvis stable Neurologic Exam: alert, oriented x 3, cooperative, normal mood/affect, sensation nml, No motor deficits Skin Exam: normal color, warm, dry, No rash Lymphatic Exam: No adenopathy SpO2 Interpretation: normal O2 Delivery: Room Air - Course Nursing assessment & vital signs reviewed: Yes - Progress Progress: improved Progress Note: 24-year-old male presents to our ED for evaluation of dental pain. Physical exam reveals a fractured tooth with an associated dental abscess. Patient received an oral dose of Augmentin IM Toradol and [place]. Pain improved. A prescription for Augmentin and Toradol forwarded to patient's pharmacy. Patient was sent home with 4 additional [place] pills. Patient had advised to follow-up with his dentist within 48 hours for reevaluation. Patient agrees to do so. No indication for further workup at this time. Will discharge home. Patient voices no other complaints or concerns at this time. Portions of this note were created with voice recognition technology. There may be grammatical, spelling, punctuation or sound alike errors Complexity of problem addressed is moderate acute complicated. No critical care time. Complexity of data reviewed and analyzed as none. No specialized testing ordered. Diagnosis made based on history and physical exam. Risk of complication and or risk of morbidity/mortality of patient management is low. Vital stable. Time spent to discharge patient is approximately 15 minutes. Plan of care established for shared decision making. No social determinants of health present to impede follow-up. Portions of this note were created with voice recognition technology. There may be grammatical, spelling, punctuation or sound alike errors 01/08/25 00:05 Counseled pt/family regarding: diagnosis, need for follow-up, rad results - Departure Departure Disposition: Home Clinical Impression: Fractured tooth, Dental abscess, Dental implant pain, Carious teeth Condition: Stable Critical Care Time: No Referrals: DOCTOR,NO FAMILY [Primary Care Provider, UNKNOWN] - Follow up/PCP as directed VLADIMIR MERAZ MD [ACTIVE STAFF, [facility]] - Follow up/PCP as directed Additional Instructions: Discharge/Care Plan DAVID SHELBY was seen on 01/08/25 in the Emergency Room. The patient was counseled regarding Diagnosis,Lab results, Imaging studies, need for follow up and when to return to the Emergency Room. Prescriptions given: Discharge Note I have spoken with the patient and/or caregivers. I have explained the patient's condition, diagnosis and treatment plan based on the information available to me at this time. I have answered the patient's and/or caregiver's questions and addressed any concerns. The patient and/or caregivers have as good understanding of the patient's diagnosis, condition and treatment plan as can be expected at this point. The vital signs have been stable. The patient's condition is stable and appropriate for discharge from the emergency department. The patient will pursue further outpatient evaluation with the primary care physician or other designated or consulting physician as outlined in the discharge instructions. The patient and/or caregivers are agreeable to this plan of care and follow-up instructions have been explained in detail. The patient and/or caregivers have received these instruction. The patient/and or caregivers are aware that any significant change in condition or worsening of symptoms should prompt an immediate return to this or the closest emergency department or call 911. Prescriptions: Amox Tr/Potass Clav. 875 mg [Augmentin 875-125 Tablet] 875 mg PO BID 7 Days #14 tablet Ketorolac Trometh 10 mg Tab [TORAdol 10 MG TABLET] 10 mg PO TID 5 Days #15 tablet
[2025-01-08] MEDS: NORCO 10-325 MG PO PRN (00:05)
[2025-01-08] MEDS: NORCO 5/325 MG PO PRN (00:06)
[2025-01-08] MEDS: Augmentin 875-125 Tablet PO ONE (00:06)
[2025-01-08] MEDS: TORAdol 30 mg Injection IM ONE (00:06)
== END 2025-01-08 00:31 | disposition home or self-care (01) ==
LOC: ED 23:37
DX: S02.5XXA Fracture of tooth (traumatic), initial encounter for closed fracture (principal); K04.7 Periapical abscess without sinus; M27.69 Other endosseous dental implant failure; K02.9 Dental caries, unspecified; Z79.899 Other long term (current) drug therapy
CPT/HCPCS: 96372; 99283; J1885; A9270-GY

== ENCOUNTER 2025-03-28 23:43 | Emergency (ER) | payer OTHER ==
[2025-03-29 00:08] VITALS: TEMP 96.7
--- NOTE | 2025-03-29 00:14 | ERPHSYRPT ---
- History of Present Illness Time Seen by Provider: 03/29/25 00:13 Source: patient, police Exam Limitations: no limitations Patient Subjective Stated Complaint: pt states that he has high blood pressure Triage Nursing Assessment: pt ambulated into the er shackled; pt is axo x4; c/o htn; pt states 5/10 pain to chest; clear apical heart tone; strong mitch pedal pulses; strong mitch radial pulses; b/p 111/85 on arrival; clear lung sounds in all lobes; no respiratory distress present; no edema present; skin PDW; vitals wnl Physician History: patient brought from care home with elevated BP, running 150s/100s prior to arrival. Took Clonidine and Nitro at care home. Reports tension like headache. No vision change. Occasional chest pain. No fevers or recent illness. Timing/Duration: today Activities at Onset: none Quality: pressure Location: substernal Chest Pain Radiation: no radiation Severity of Pain-Max: mild Severity of Pain-Current: mild Modifying Factors: Improves With: nitroglycerin Nitro Today/Relief: 0.4 mg x 1, provided at home Aspirin Treatment Today: no aspirin today Associated Symptoms: chest pain, No shortness of breath, No diaphoresis Prior Chest Pain/Cardiac Workup: no prior cardiac workup Allergies/Adverse Reactions: ibuprofen Allergy (Intermediate, Verified 03/28/25 23:52) Rash ketorolac [From Toradol] Allergy (Intermediate, Verified 03/28/25 23:52) Rash Home Medications: Clonidine HCl 0.1 mg [Clonidine 0.1 mg Tablet] 0.1 mg PO DAILY 03/29/25 [History] OLANZapine [Zyprexa] 5 mg PO DAILY 03/29/25 [History] Hx Tetanus, Diphtheria Vaccination/Date Given: Yes Hx Influenza Vaccination/Date Given: Yes Hx Pneumococcal Vaccination/Date Given: No Travel Risk - International Travel Have you traveled outside of the country in past 3 weeks: No - Emerging Infectious Disease Are you exhibiting symptoms associated with any current EIDs: No Symptoms: Fever - Review of Systems All Other Systems: Reviewed and Negative - Past Medical History Pertinent Past Medical History: Yes Neurological History: No Pertinent History ENT History: No Pertinent History Cardiac History: No Pertinent History Respiratory History: No Pertinent History Endocrine Medical History: No Pertinent History Musculoskeletal History: No Pertinent History, Fractures GI Medical History: Gallbladder Disease Other Medical History: PTSD - Past Surgical History Past Surgical History: No Gastrointestinal: Cholecystectomy - Social History Smoking Status: Current every day smoker Exposure to second hand smoke: No Drug Use: none - Social Determinants of Health Will the patient participate in the screening: Unable to obtain - Nursing Vital Signs Nursing Vital Signs: Initial Vital Signs Temperature 96.7 F 03/28/25 23:58 Pain Scale Pain Intensity 5 - Physical Exam General Appearance: no apparent distress Eye Exam: PERRL/EOMI Neck Exam: normal inspection, non-tender, supple, full range of motion Respiratory Exam: normal breath sounds, lungs clear, airway intact, No respiratory distress Cardiovascular Exam: regular rate/rhythm, capillary refill <2 sec, No edema Gastrointestinal/Abdomen Exam: soft, No tenderness Extremity Exam: No swelling, No tenderness Neurologic Exam: alert, oriented x 3, cooperative SpO2 Interpretation: normal O2 Delivery: Room Air - Course Nursing assessment & vital signs reviewed: Yes EKG Interpreted by Me: RATE (69), Sinus Rhythm, NORMAL AXIS, NORMAL INTERVALS, NORMAL QRS, NORMAL ST-T Ordered Tests: Active Orders 24 hr Category Date Time Status EKG-ER Only STAT Care 03/29/25 00:12 Completed CHEST 1 VIEW (PORTABLE) Stat Exams 03/29/25 00:13 Taken CBC W DIFF Stat Lab 03/29/25 00:30 Completed CMP Stat Lab 03/29/25 00:30 Completed TROPONIN Q2H Lab 03/29/25 00:30 Completed TSH, 3RD Generation Stat Lab 03/29/25 00:30 Completed Lab/Rad Data: Laboratory Result Diagrams 03/29/25 00:30 03/29/25 00:30 Laboratory Results 03/29/25 03/29/25 03/29/25 Range/Units 00:30 00:30 00:30 WBC 6.5 (4.23-9.07) x10^3/uL RBC 4.82 (4.63-6.08) x10^6/uL Hgb 14.6 (13.7-17.5) g/dL Hct 41.5 (40.1-51.0) % MCV 86.1 (79.0-92.2) fL MCH 30.3 (25.7-32.2) pg MCHC 35.2 (32.3-36.5) g/dL RDW 11.9 (11.6-14.4) % Plt Count 163 (163-337) x10^3/uL MPV 10.2 (9.4-12.4) fL Gran % 52.6 (34.0-67.9) % Immature Gran % (Auto) 0.0 L (0.001-0.429) % Nucleat RBC Rel Count 0.0 (0.00-0.2) % Eos # (Auto) 0.26 (0.04-0.54) x10^3/uL Immature Gran # (Auto) 0.00 L (0.001-0.031) x10^3u/L Absolute Lymphs (auto) 2.12 (1.32-3.57) x10^3/uL Absolute Monos (auto) 0.68 (0.30-0.82) x10^3/uL Absolute Nucleated RBC 0.00 (0.00-0.012) x10^3u/L Lymphocytes % 32.4 (21.8-53.1) % Monocytes % 10.4 (5.3-12.2) % Eosinophils % 4.0 (0.8-7.0) % Basophils % 0.6 (0.2-1.2) % Absolute Granulocytes 3.44 (1.78-5.38) x10^3/uL Basophils # 0.04 (0.01-0.08) x10^3/uL Sodium 141 (135-145) mmol/L Potassium 4.3 (3.5-5.1) mmol/L Chloride 107 (98-107) mmol/L Carbon Dioxide 28 (22-30) mmol/L Anion Gap 10.7 (5-15) MEQ/L BUN 8 L (9-20) mg/dL Creatinine 0.72 (0.66-1.25) mg/dL Estimated GFR 130.0 ML/MIN Glucose 92 (74-106) mg/dL Calcium 9.2 (8.4-10.2) mg/dL Total Bilirubin 0.60 (0.2-1.3) mg/dL AST 50 (17-59) U/L ALT 86 H (0-50) U/L Alkaline Phosphatase 66 (38-126) U/L Troponin I < 0.012 (0.000-0.033) ng/mL Serum Total Protein 6.6 (6.3-8.2) g/dL Albumin 4.1 (3.5-5.0) g/dL TSH 3rd Generation 1.502 (0.470-4.680) mIU/L - Progress Progress: improved Air Movement: good Progress Note: BP wnl since arrival to ER. CP resolved. Labs unremarkable. EKG NSR. CXR neg. Recommend follow up with PCP for elevated BP. Blood Culture(s) Obtained: No Antibiotics given: No Counseled pt/family regarding: lab results, diagnosis, need for follow-up, rad results Medical Desision Making - Diagnostic Testing Diagnostic test were ordered, analyzed, and reviewed by me: Yes Radiological Interpretation: Interpreted by me - Risk of complications Low Risk: Low risk of morbidity from additional dx testing or treatment - Departure Departure Disposition: Home Clinical Impression: Elevated blood pressure reading without diagnosis of hypertension, Chest pain Condition: Stable Critical Care Time: No Referrals: DOCTOR,NO FAMILY [Primary Care Provider, UNKNOWN] - Follow up/PCP as directed Instructions: Malignant Hypertension (DC) Additional Instructions: Patient is medically cleared to return care home at this time.
[2025-03-29 00:41] LABS: BASOPHIL % 0.6 % (0.2-1.2); Basophil (Absolute #) 0.04 x10^3/uL (0.01-0.08); Eosinophil (Absolute #) 0.26 x10^3/uL (0.04-0.54); Hematocrit 41.5 % (40.1-51.0); Hemoglobin 14.6 g/dL (13.7-17.5); IMMATURE GRAN # 0.00 x10^3u/L (0.001-0.031); IMMATURE GRAN % 0.0 % (0.001-0.429); Lymphocyte (Absolute #) 2.12 x10^3/uL (1.32-3.57); Mean Corpuscular Hemoglobin 30.3 pg (25.7-32.2); Mean Corpuscular Hgb Concent. 35.2 g/dL (32.3-36.5); Monocyte (Absolute #) 0.68 x10^3/uL (0.30-0.82); NUCLEATED RBC # 0.00 x10^3u/L (0.00-0.012); NUCLEATED RBC % 0.0 % (0.00-0.2); Platelet Count 163 x10^3/uL (163-337); Red Blood Count 4.82 x10^6/uL (4.63-6.08); White Blood Count 6.5 x10^3/uL (4.23-9.07)
[2025-03-29 01:31] LABS: Calcium 9.2 mg/dL (8.4-10.2); Carbon Dioxide 28.0 mmol/L (22-30); Creatinine 1 0.72 mg/dL (0.66-1.25); EST GLOMERULAR FILTRATION RATE 130.0 ML/MIN; Glucose 92.0 mg/dL (74-106); Potassium 4.3 mmol/L (3.5-5.1); SGOT/AST 50.0 U/L (17-59); SGPT/ALT 86.0 U/L (0-50); Total Protein 6.6 g/dL (6.3-8.2)
[2025-03-29 01:40] VITALS: BP 111/86; PULSE 67; RESP 16; O2SAT 98
--- NOTE | 2025-03-29 08:14 | XRAY ---
Indication: Chest pain. Comparison: None Portable chest demonstrates normal heart and lungs. Bony thorax intact. No acute findings.
== END 2025-03-29 01:45 | disposition home or self-care (01) ==
LOC: ED 23:43
DX: R03.0 Elevated blood-pressure reading, without diagnosis of hypertension (principal); R07.9 Chest pain, unspecified; R51.9 Headache, unspecified; Z79.899 Other long term (current) drug therapy; Z72.0 Tobacco use

== ENCOUNTER 2025-08-17 20:25 | Emergency (ER) | payer SELFPAY ==
[2025-08-17 20:38] VITALS: RESP 18; TEMP 95.5; O2SAT 99
--- NOTE | 2025-08-17 20:43 | ERPHSYRPT ---
- History of Present Illness Time Seen by Provider: 08/17/25 20:29 Patient Subjective Stated Complaint: pt states that he fell on the ice this afternoon Triage Nursing Assessment: pt ambulated into the er; pt is holding left arm; pt is axo x4; c/o left shoulder injury; pt states 8/10 pain to left shoulder; limited ROM to LUE; strong left radial pulse; skin PDW; no respiratory distress present; vitals wnl Physician History: Patient is a 25-year-old male with past medical history significant for chronic left shoulder pain who presents to the emergency department for evaluation of left shoulder pain after he slipped on ice outside his mom's house and fell, striking his left shoulder. He did not sustain any significant injury and has no abrasions or contusive changes, however, is sore in his left shoulder and feels like he exacerbated his chronic shoulder pain. He states he does have a chronic rotator cuff injury and has seen orthopedic surgery before. He has never had any procedures to that shoulder. He does easily sublux the left shoulder chronically but does not have any evidence of dislocation here today. He is tender over his superior rotator cuff with no gross deformity or weakness. He has no other injuries or complaints. Allergies/Adverse Reactions: ibuprofen Allergy (Intermediate, Verified 08/17/25 20:31) Rash ketorolac [From Toradol] Allergy (Intermediate, Verified 08/17/25 20:31) Rash Hx Tetanus, Diphtheria Vaccination/Date Given: Yes Hx Influenza Vaccination/Date Given: Yes Hx Pneumococcal Vaccination/Date Given: No Travel Risk - International Travel Have you traveled outside of the country in past 3 weeks: No - Emerging Infectious Disease Are you exhibiting symptoms associated with any current EIDs: No Symptoms: Fever - Past Medical History Pertinent Past Medical History: Yes Neurological History: No Pertinent History ENT History: No Pertinent History Cardiac History: No Pertinent History Respiratory History: No Pertinent History Endocrine Medical History: No Pertinent History Musculoskeletal History: No Pertinent History, Fractures GI Medical History: Gallbladder Disease Other Medical History: PTSD - Past Surgical History Past Surgical History: No Gastrointestinal: Cholecystectomy - Social History Smoking Status: Light tobacco smoker Exposure to second hand smoke: No Drug Use: none - Social Determinants of Health Will the patient participate in the screening: Unable to obtain - Nursing Vital Signs Nursing Vital Signs: Initial Vital Signs Temperature 95.5 F 08/17/25 20:32 Pulse Rate 83 08/17/25 20:32 Respiratory Rate 18 08/17/25 20:32 Blood Pressure 140/101 08/17/25 20:32 O2 Sat by Pulse Oximetry 99 08/17/25 20:32 Pain Scale Pain Intensity 8 - Physical Exam SpO2: 99 Comments: GENERAL: Well-nourished, well-developed, appears stated age. Patient is non- toxic in appearance. No acute distress. HEENT: Head is atraumatic, normocephalic. Pupils equal, round, and reactive to light. Extraocular movements intact. No conjunctival injection. No external masses or lesions. Pharynx is clear, airway is patent. NECK: Supple, no meningeal signs. Trachea midline. HEART: Regular rate and rhythm. Symmetric radial pulses. No peripheral edema. LUNGS: Unlabored breathing with symmetric excursion bilaterally. No retractions or respiratory distress. MUSCULOSKELETAL: Normal muscle tone. Tenderness to palpation over the left superior rotator cuff with no weakness or deformity. No contusive changes. No crepitus. No numbness or weakness. No joint swelling or tenderness. No cyanosis or clubbing. SKIN: Warm, dry. No rashes, petechia, or purpura. Capillary refill <2 seconds. NEURO: Strength is 5/5 and equal in the bilateral upper and lower extremities. Sensation grossly intact. No focal neurologic deficits. Speech is clear. PSYCHIATRIC: Patient is awake and alert. Appropriate behavior and judgment. Ordered Tests: Active Orders 24 hr Category Date Time Status SHOULDER Stat Exams 08/17/25 20:42 Ordered Medication Summary Discontinued Medications Generic Name Dose Route Start Last Admin Trade Name Freq PRN Reason Stop Dose Admin Hydrocodone Bitart/Acetaminophen 1 tab 08/17/25 20:42 08/17/25 20:45 Hydrocodone/Apap 5/325 1 Tab Tablet PO 08/17/25 20:43 1 tab STAT ONE Administration Hydrocodone Bitart/Acetaminophen Confirm 08/17/25 20:44 Hydrocodone/Apap 5/325 1 Tab Tablet Administered 08/17/25 20:45 Dose 1 tab .ROUTE .ST-MED ONE - Progress Progress Note: 08/17/25 21:01 The patient was evaluated by myself. History is obtained from the patient. Differential diagnosis considerations include but are not limited to fracture, dislocation, contusion, abrasion, exacerbation of chronic rotator cuff injury, other. Following initial history and physical, patient was provided with a single [place] 5-325 mg. The following was ordered: Left shoulder x-ray Imaging was independently reviewed by myself and demonstrated no significant changes from previous imaging with no acute fracture or dislocation. Patient was provided with a shoulder sling for comfort but instructed to continue normal movement and range of motion exercises. The patient was provided with a prescription for Robaxin 1000 mg 4 times daily x 3 days and side effect profile and dosing regimen were discussed. The patient was instructed to follow-up with orthopedic surgery in 1 week and PCP in 2 to 3 days for further evaluation and management. Strict return precautions were discussed, including the need to be evaluated immediately for any evidence of new or worsening concerning symptoms. The patient was provided with verbal and written discharge instructions and demonstrated understanding. The patient was then discharged in hemodynamically stable condition. - Departure Departure Disposition: Home Clinical Impression: Left shoulder pain Qualifiers: Chronicity: acute Qualified Code(s): M25.512 - Pain in left shoulder Condition: Stable Critical Care Time: No Referrals: DOCTOR,NO FAMILY [Primary Care Provider, UNKNOWN] - Follow up/PCP as directed Instructions: Shoulder Tendinopathy (DC) Additional Instructions: Follow-up with your PCP for reevaluation in 2-3 days. In the meantime, use the prescribed medications for pain and muscle spasm. If your symptoms do not improve within 1 week, you should also follow-up with orthopedic surgery. You may return to the same surgeon you saw for your hand. Prescriptions: Methocarbamol [Robaxin] 1,000 mg PO QID 3 Days #24 tablet
[2025-08-17] MEDS ORDERED: NORCO 5/325 MG ONE (20:44)
[2025-08-17] MEDS: NORCO 5/325 MG PO ONE (20:45)
[2025-08-17 21:21] VITALS: BP 144/97; PULSE 79
--- NOTE | 2025-08-18 08:38 | XRAY ---
Indication: Pain. No known injury. Comparison: March 10, 2025 3 view left shoulder again demonstrates mild AC degenerative arthropathy. No new/acute bony, articular, or soft tissue abnormalities.
== END 2025-08-17 21:27 | disposition home or self-care (01) ==
LOC: ED 20:25
DX: M25.512 Pain in left shoulder (principal); Z79.899 Other long term (current) drug therapy